=== PATIENT | female | born 1995 | race African-American/Black ===

== ENCOUNTER 2019-04-13 20:53 | Emergency (ER) | payer MEDICAID ==
[~2019-04-13] VITALS: Ht 165.1 cm; Wt 54.0 kg
[2019-04-13 21:24] VITALS: BP 128/76
== END 2019-04-14 00:05 | disposition left against medical advice (07) ==
LOC: EDBD 20:53 → ER 20:53
DX: Z53.21 Procedure and treatment not carried out due to patient leaving prior to being seen by health care provider (principal)